=== PATIENT | female | born 1970 | race Caucasian/White ===

== ENCOUNTER 2017-05-28 23:51 | Emergency (ER) | payer MEDICAID ==
[2017-05-29 01:32] LABS: PLATELET COUNT 328 x10^3mcL (130-400); RED CELL DISTRIBUTION WIDTH 11.9 % (11.5-14.5)
[2017-05-29 01:37] LABS: BASOPHIL % 8.3 % (0-2)
[2017-05-29 02:09] LABS: CALCIUM 8.6 mg/dL (8.5-10.1); CARBON DIOXIDE 28.3 mmol/L (21-32); CHLORIDE SERUM 107 mmol/L (98-107); CREATININE SERUM 0.9 mg/dL (0.6-1.0); GFR1 > 60 mL/min; GLUCOSE SERUM 125 mg/dL (74-106); POTASSIUM SERUM 4.3 mmol/L (3.5-5.1); SODIUM SERUM 143 mmol/L (136-145)
[2017-05-29 02:13] LABS: ALKALINE PHOSPHATASE 62 U/L (46-116); ALT/SGPT 33 U/L (14-59); AST/SGOT 20 U/L (15-37); LIPASE 232 IU/L (73-393); TOTAL PROTEIN, SERUM 7.2 g/dL (6.4-8.2)
[2017-05-29 02:19] LABS: ALBUMIN 3.3 g/dL (3.4-5.0)
[2017-05-29 03:12] VITALS: BP 134/89
== END 2017-05-29 03:12 | disposition home or self-care (01) ==
LOC: ED 23:51
PROVIDERS: Emergency Medicine Emergency Medical Services
DX: K80.70 Calculus of gallbladder and bile duct without cholecystitis without obstruction (principal)
CPT/HCPCS: J2270; J2405; Q0092

== ENCOUNTER 2017-05-31 22:12 | Inpatient (IN) | payer MEDICAID ==
[~2017-05-31] VITALS: Ht 157.5 cm; Wt 93.9 kg
[2017-05-31 23:41] LABS: BASOPHIL % 0.5 % (0-2); PLATELET COUNT 320 x10^3mcL (130-400); RED CELL DISTRIBUTION WIDTH 12.8 % (11.5-14.5)
[2017-05-31 23:48] LABS: CARBON DIOXIDE 26.7 mmol/L (21-32); CHLORIDE SERUM 103 mmol/L (98-107); CREATININE SERUM 0.9 mg/dL (0.6-1.0); GFR1 > 60 mL/min; GLUCOSE SERUM 90 mg/dL (74-106); POTASSIUM SERUM 3.7 mmol/L (3.5-5.1); SODIUM SERUM 142 mmol/L (136-145)
[2017-05-31 23:52] LABS: ALBUMIN 3.8 g/dL (3.4-5.0); ALKALINE PHOSPHATASE 61 U/L (46-116); ALT/SGPT 54 U/L (14-59); AST/SGOT 40 U/L (15-37); BILIRUBIN TOTAL 0.87 mg/dL (0.20-1.00); LIPASE 197 IU/L (73-393); TOTAL PROTEIN, SERUM 7.9 g/dL (6.4-8.2)
[2017-06-01 00:10] LABS: microscopic required? NO
[2017-06-01 00:29] LABS: urine erythrocyte NEGATIVE (NEGATIVE)
[2017-06-01 02:30] VITALS: BP 137/70
[2017-06-01 02:43] LABS: FREE T4 1.13 ng/dL (0.76-1.46); FREE THYROXINE INDEX 3.5 ug/dL (1.4-4.5); T4(THYROXINE) 10.2 ug/dL (4.7-13.3)
[2017-06-01 02:45] LABS: MAGNESIUM 2.1 mg/dL (1.8-2.4); PHOSPHOROUS 4.6 mg/dL (2.5-4.9)
[2017-06-01 02:46] LABS: CHOLESTEROL/HDL RATIO 4.3
[2017-06-01 04:15] LABS: T3 TOTAL 1.34 ng/mL
[2017-06-01 05:30] VITALS: BP 120/69
[2017-06-01 09:05] VITALS: BP 125/57
[2017-06-01 13:20] VITALS: BP 133/79
[2017-06-01 15:00] LABS: AMPHETAMINE QUAL UR NONE DETECTED (NEG <=1000)
[2017-06-01 23:05] VITALS: BP 102/52
[2017-06-02 06:26] VITALS: BP 124/70
[2017-06-02 07:00] LABS: BASOPHIL % 0.2 % (0-2); PLATELET COUNT 279 x10^3mcL (130-400); RED CELL DISTRIBUTION WIDTH 12.9 % (11.5-14.5)
[2017-06-02 07:40] LABS: ALKALINE PHOSPHATASE 84 U/L (46-116); ALT/SGPT 185 U/L (14-59); AST/SGOT 169 U/L (15-37); BILIRUBIN TOTAL 1.1 mg/dL (0.20-1.00); CALCIUM 8.7 mg/dL (8.5-10.1); CARBON DIOXIDE 24.5 mmol/L (21-32); CHLORIDE SERUM 107 mmol/L (98-107); CREATININE SERUM 0.9 mg/dL (0.6-1.0); GFR1 > 60 mL/min; GLUCOSE SERUM 137 mg/dL (74-106); POTASSIUM SERUM 4.7 mmol/L (3.5-5.1); SODIUM SERUM 142 mmol/L (136-145); TOTAL PROTEIN, SERUM 7.2 g/dL (6.4-8.2)
[2017-06-02 07:41] LABS: ALBUMIN 3.2 g/dL (3.4-5.0)
[2017-06-02 09:30] VITALS: BP 120/71
[2017-06-02 13:53] VITALS: BP 133/64
[2017-06-02 17:42] VITALS: BP 122/69
[2017-06-02 21:41] VITALS: BP 115/51
[2017-06-03 05:27] VITALS: BP 125/74
[2017-06-03 07:19] LABS: BASOPHIL % 0.3 % (0-2); PLATELET COUNT 263 x10^3mcL (130-400); RED CELL DISTRIBUTION WIDTH 13.4 % (11.5-14.5)
[2017-06-03 07:29] LABS: CALCIUM 8.7 mg/dL (8.5-10.1); CARBON DIOXIDE 25.3 mmol/L (21-32); CHLORIDE SERUM 108 mmol/L (98-107); CREATININE SERUM 0.8 mg/dL (0.6-1.0); GFR1 > 60 mL/min; GLUCOSE SERUM 111 mg/dL (74-106); POTASSIUM SERUM 3.7 mmol/L (3.5-5.1); SODIUM SERUM 141 mmol/L (136-145)
[2017-06-03] MEDS ORDERED: LAC PO (08:04)
[2017-06-03] MEDS ORDERED: ACETAMINOPHEN-H1 TA1 PO (08:05)
[2017-06-03] MEDS ORDERED: COLACE100 MG PO (08:07)
[2017-06-03 08:50] VITALS: BP 150/73
[2017-06-03 11:50] VITALS: BP 143/75
[2017-06-05 15:04] VITALS: BP 110/64
== END 2017-06-03 12:40 | disposition home or self-care (01) | DRG 263 ==
LOC: ED 22:12 → DU 06-01 01:05
PROVIDERS: Emergency Medicine; Family Medicine; Surgery; ADMIT Family Medicine
PROC: 0FT44ZZ Resection of Gallbladder, Percutaneous Endoscopic Approach (ICD-10-PCS; principal; 2017-06-01 16:00)
DX: K81.0 Acute cholecystitis (principal); N17.0 Acute kidney failure with tubular necrosis; E44.1 Mild protein-calorie malnutrition; E78.5 Hyperlipidemia, unspecified; E66.9 Obesity, unspecified; Z68.37 Body mass index [BMI] 37.0-37.9, adult
CPT/HCPCS: 83880; 84439; J0330; J1170; J1885; J2175; J2250; J2270; J2405; J2543; J2765; J3010; J3490; J7030; Q0092